=== PATIENT | female | born 1960 | race Caucasian/White ===

== ENCOUNTER 2023-06-30 00:17 | Emergency (ER) | payer OTHER, SELFPAY ==
[2023-06-30 00:35] VITALS: BP 150/77
[2023-06-30 01:09] VITALS: BMI 29.4
[2023-06-30 01:14] VITALS: BP 135/72
[2023-06-30 01:28] LABS: % Basophils 0.5 % (0-2); % Eosinophils 2.7 % (0-6); % Immature Granulocytes 0.1 % (0-0.5); % Lymphocytes 41.2 % (20.5-51.1); % Monocytes 6.7 % (1.7-9.3); % Neutrophils 48.8 % (42.2-75.2); Absolute Eosinophils 0.2 10^3/uL (0-0.7); Absolute Lymphocytes 3.2 10^3/uL (1.2-3.4); Absolute Monocytes 0.5 10^3/uL (0.1-0.6); Absolute Neutrophils 3.8 10^3/uL (1.4-6.5); Hematocrit 40.7 % (37.0-47.0); Mean Corp Hgb Conc. 31.9 g/dL (33.0-37.0); Mean Corpuscular Hgb 28.1 pg (27.0-31.0); Mean Corpuscular Volume 88.1 fL (81.0-99.0); Mean Platelet Volume 10.1 fL (7.4-10.4); Nucleated Red Blood Cells % 0 %; Platelet Count 343 10^3/uL (130-400); Red Blood Cell Count 4.62 10^6/uL (4.20-5.40); Red Cell Dist. Width 13.5 % (11.5-14.5); White Blood Cell Count 7.7 10^3/uL (4.8-10.8)
[2023-06-30 01:36] LABS: ALT (SGPT) 21 U/L (0-35); AST (SGOT) 29 U/L (14-36); Albumin 5.2 g/dl (3.5-5.0); Alkaline Phosphatase 80 U/L (38-126); Blood Urea Nitrogen 12 mg/dl (7-17); Calcium 9.5 mg/dl (8.4-10.2); Carbon Dioxide 26 mmol/L (22-30); Chloride 101 mmol/L (98-107); Estimated Creatinine Clearance 104 ml/min; Glucose 97 mg/dl (70-99); Potassium 4.3 mmol/L (3.5-5.1); Sodium 135 mmol/L (135-145); Total Bilirubin 0.6 mg/dl (0.2-1.3); Total Protein 8.1 g/dl (6.3-8.2); eGFR > 60.00
--- NOTE | 2023-06-30 01:42 | ED.GENMED ---
History of Present Illness
General
Chief Complaint: Fainting/Passed Out
Source: patient and spouse
Exam Limitations: none
Time Seen by Provider: 06/30/23 01:29
Travel History
Have you had any contact with someone who has COVID-19?: No
Do you have any symptoms of coronavirus? Fever > 100 degrees, chills, cough, shortness of breath, sore throat, loss of taste or smell, muscle aches, or headache?: No
History of Present Illness
History of Present Illness:
63-year-old female presents emergency department after a near syncope episode tonight. She had drank a small drink, and began feeling weak, lightheaded and laid down on the couch and nearly passed out. She noted some pressure in the front of her
head. She denies completely passing out and states she can hear her talking to her. EMS checked blood sugar, 119. She denies chest pain and states she is feeling better at this time.
Past History
Past History
ED Past Medical History: GERD
ED Past Surgical History: and Orthopedic (Right shoulder rotator cuff and bicep repair)
Social History
Tobacco: Non-smoker
Alcohol: Occasional
Personal:
Review of Systems
Review of Systems
Allergies reviewed?: Yes
All Other Systems: Not applicable
Constitutional: Reports no symptoms
EENT: Reports no symptoms
Respiratory: Reports no symptoms
Cardiac: Reports syncope
ABD/GI: Reports no symptoms
: Reports no symptoms
Musculoskeletal: Reports no symptoms
Skin: Reports no symptoms
Neurological: Reports headache
Endocrine: Reports no symptoms
Hematologic/Lymphatic: Reports no symptoms
Psychiatric: Reports no symptoms
Phy Exam
Physical Exam
Physical Exam:
Physical Exam
General: no apparent distress, not acutely ill
Neck: supple. no meningeal signs. normal posterior pharynx
Heart: s1/s2 regular rate and rhythm, no murmur. equal radial
pulses.
HEENT: Pupils equal round reactive to light, EOMI
Lungs: no acute respiratory distress. clear bilaterally
Abdomen: normal bowel sounds. not tender. no CVAT
Neuro: alert and oriented. no focal neurological deficits cranial nerves II through XII intact
Skin: no rash
Psychiatric: well kept. interactive and cooperative
Extremities: no edema. no calf tenderness. negative homans. good distal pulses
Course
Orders/Labs/Results
Orders:
Orders
06/30/23 00:54
Electrocardiogram (*1) Urgent
Reason for Study: Syncope
Cardiology Consult: Unknown
06/30/23 00:55
EKG- Treatment ONCE
06/30/23 01:10
Complete Blood Count/With Diff Urgent
Comprehensive Metabolic Panel Urgent
Troponin I Urgent
06/30/23 01:42
CT Head W/o Iv Contrast Urgent
Comment:
Reason For Exam: head pressure, near syncope
Abnormal Lab Results
06/30/23
01:10
MCHC 31.9 L g/dL
(33.0-37.0)
Albumin 5.2 H g/dl
(3.5-5.0)
06/30/23 01:10
06/30/23 01:10
Vital Signs
Initial and Last Documented VS:
Initial Vital Signs
Temp Pulse Resp BP Pulse Ox
98.1 F 73 20 150/77 100
06/30/23 00:35 06/30/23 00:35 06/30/23 00:35 06/30/23 00:35 06/30/23 00:35
Last Documented Vital Signs
Temp Pulse Resp BP Pulse Ox
98.1 F 76 17 135/72 98
06/30/23 00:35 06/30/23 01:45 06/30/23 01:45 06/30/23 01:14 06/30/23 01:45
MDM/Problems Addressed
Differential Diagnosis Includes:
Intracranial hemorrhage, dysrhythmia
MDM/Problems Addressed:
62-year-old female with near syncope episode. Mild frontal headache. No signs of intracranial hemorrhage. Normal EKG. Stable for discharge.
Chronic conditions affecting care: HTN
Acute Exacerbation and/or Progression of Chronic Illness: HTN
*Radiology
Radiology exam reviewed: radiology read reviewed (CT head no acute findings)
*Pulse Oximetry
Patient hypoxic: no
*EKG
Interpreted by ED Provider?: Yes
EKG Intrepretation Date: 06/30/23
EKG Intrepretation Time: 00:59
Interpretation: normal
Comparison EKG: no changes
Heart Rate: 86
Rate: normal
Rhythm: sinus
Wiggins: normal axis
Interval: normal interval
QRS Pattern: normal QRS
Ischemia: no ischemia
*T[employer] Interpretation
Rate: normal
Interpretation: normal
Heart Rate: 88
Rhythm: sinus
*Critical Care Note
Total Time (30-74mins, 75-104mins- exclusive of procedures): Not Applicable
Patient Management
Social determinants of health affecting care: Living situation
Escalation/DeEscalation of care consider admission/obs:
Admit not indicated
ED Attending Note
-
Portions of this chart may have been created with voice recognition software.� Occasional wrong word or��sound alike� substitutions may have occurred due to the inherent limitations of voice recognition software.
Discharge Plan
Departure
Patient Disposition: Home (Routine Discharge)
Date of Disposition: 06/30/23
Time of Disposition: 04:01
Patient with high blood pressure during this ER visit?: Yes
Condition: Good
Discharge Problem:
Near syncope, Headache
Instructions: Syncope (Fainting) (DC), BLOOD PRESSURE
Prescriptions:
No Action
cranberry fruit concentrate [Azo Cranberry] 250 MG tablet,chewable
2 tab PO DAILY
calcium carbonate-vitamin D3 [Oyster Shell Calcium-Vit D3] 500 MG tablet
1 tab PO DAILY
multivitamin with folic acid [Tab-A-Palu] 1 TABLET tablet
1 tab PO DAILY
Referrals:
Apryl Hinton MD [Family Provider] - Call in 1-3 days for appt
Interventions
Interventions:
*Risk Screen - Suicide Last Done: 06/30/23 00:35
*General Assessment Last Done: 06/30/23 00:35
*Neglect/Abuse Screening Last Done: 06/30/23 00:35
ED- Fall Risk Assessment Last Done: 06/30/23 00:35
*ED COVID-19 Vaccine History Last Done: 06/30/23 00:35
ED- Cardiac Assessment Last Done: 06/30/23 01:09
ED- Neurological Assessment Last Done: 06/30/23 01:09
[2023-06-30 01:48] LABS: Troponin I < 0.012 ng/ml
[2023-06-30 04:19] VITALS: BP 124/73
== END 2023-06-30 04:27 | disposition home or self-care (01) ==
LOC: EMR 00:17
PROVIDERS: EMERGENCY PHYSICIAN Emergency Medicine; FAMILY PHYSICIAN Family Medicine
DX: R51.9 Headache, unspecified (principal); R55 Syncope and collapse; R53.1 Weakness; R42 Dizziness and giddiness; I10 Essential (primary) hypertension
CPT/HCPCS: 99285; 70450; 80053; 84484; 85025; 93005

== ENCOUNTER → 2024-03-08 10:49 | Outpatient (REF) | payer OTHER, SELFPAY | LOC: WDC 10:49 | PROVIDERS: ATTENDING PHYSICIAN Family Medicine | DX: Z12.31 Encounter for screening mammogram for malignant neoplasm of breast (principal) | CPT/HCPCS: 77063; 77067 ==

== ENCOUNTER → 2025-04-14 12:40 | Outpatient (REF) | payer OTHER, SELFPAY | LOC: WDC 12:40 | PROVIDERS: ATTENDING PHYSICIAN Nurse Practitioner Adult Health; FAMILY PHYSICIAN Family Medicine | DX: Z12.31 Encounter for screening mammogram for malignant neoplasm of breast (principal) | CPT/HCPCS: 77063; 77067 ==